=== PATIENT | female | born 1995 | race Caucasian/White ===

== ENCOUNTER 2018-02-24 09:21 | Emergency (ER) | payer OTHER ==
[~2018-02-24] VITALS: Ht 162.6 cm; Wt 90.9 kg
[~2018-02-24 09:21] MED LIST: FISH OIL1000 MG PO; MOTRIN 600600 MG/TAB PO; NATURAL IRON65 MG PO; PRENATAL1 TA7 PO
[2018-02-24 09:25] VITALS: BP 113/66; TEMP 97.8
[2018-02-24 09:47] LABS: BASO # 0.1 (0.0-0.2); BASO % 0.6 % (0.0-2.0); EOS # 0.1 (0.0-0.7); EOS % 1.1 % (0-4.0); GRAN # 7.6 (1.4-6.5); GRAN % 75.4 % (42.2-75.2); HEMATOCRIT 38.7 % (37.0-47.0); HEMOGLOBIN 13.1 g/dl (12.5-16.0); LYMPH # 1.7 (1.2-3.4); LYMPH % 17.1 % (20.0-51.0); MEAN CELL VOLUME 90 fl (80.0-100.0); MEAN CORPUSCULAR HEMOGLOBIN 31 pg (27.0-31.0); MEAN CORPUSCULAR HGB CONC 34 g/dl (33.0-37.0); MEAN PLATELET VOLUME 9.8 fl (7.4-10.4); MONO # 0.5 (0.1-0.6); MONO % 5.4 % (1.7-9.3); PLATELET COUNT 208 K/mm3 (130-400); RED BLOOD COUNT 4.29 M/mm3 (4.10-5.30); REDCELL DISTRIBUTION WIDTH-CV 13.4 % (11.5-14.5)
[2018-02-24 10:04] LABS: ALBUMIN 4.2 gm/dL (3.5-5.0); BILIRUBIN,TOTAL 0.3 mg/dL (0.0-1.0); CALCIUM 9.6 mg/dL (8.4-10.2); CREATININE, serum 0.52 mg/dL (0.52-1.25); POTASSIUM 3.8 mmol/L (3.4-5.0); TOTAL PROTEIN 7.3 gm/dL (6.4-8.2)
[2018-02-24 10:36] LABS: COLLECTION METHOD CLEAN CATCH
[2018-02-24 10:48] LABS: PH 7 (5-8); URINE APPEARANCE Hazy; URINE BACTERIA None Seen /hpf; URINE BILIRUBIN Negative (NEGATIVE); URINE BLOOD Negative (NEGATIVE); URINE COLOR Straw; URINE GLUCOSE Negative (NEGATIVE); URINE KETONE Negative (NEGATIVE); URINE LEUKOCYTE ESTERASE 1+ (NEGATIVE); URINE NITRATE Negative (NEGATIVE); URINE PROTEIN(semi-quant) Negative (NEGATIVE); URINE UROBILINOGEN Negative (NEGATIVE)
[2018-02-24] MEDS ORDERED: CEPHALEXIN500 M1 PO (12:41)
[2018-02-24 13:01] VITALS: PULSE 67
== END 2018-02-24 12:58 | disposition home or self-care (01) ==
LOC: COL.ER 09:21
PROVIDERS: Emergency Medicine
DX: O26.891 Other specified pregnancy related conditions, first trimester (principal); R10.9 Unspecified abdominal pain; Z3A.09 9 weeks gestation of pregnancy

== ENCOUNTER 2018-03-08 13:33 | Emergency (ER) | payer OTHER ==
[~2018-03-08] VITALS: Ht 162.6 cm; Wt 90.9 kg
[~2018-03-08 13:33] MED LIST changes: +CEPHALEXIN500 M1 PO
[2018-03-08 13:42] VITALS: TEMP 98
[2018-03-08 14:04] LABS: COLLECTION METHOD CLEAN CATCH
[2018-03-08 14:19] LABS: MUCOUS Present /lpf; PH 6 (5-8); URINE APPEARANCE Hazy; URINE BACTERIA None Seen /hpf; URINE BILIRUBIN Negative (NEGATIVE); URINE BLOOD 3+ (NEGATIVE); URINE CALCIUM OXALATE CRYSTAL Present /hpf; URINE COLOR Yellow; URINE GLUCOSE Negative (NEGATIVE); URINE KETONE Negative (NEGATIVE); URINE LEUKOCYTE ESTERASE Trace (NEGATIVE); URINE NITRATE Negative (NEGATIVE); URINE PROTEIN(semi-quant) Negative (NEGATIVE); URINE RBC >50 /hpf
[2018-03-08] MEDS ORDERED: CEPHALEXIN500 M1 PO (16:51)
[2018-03-08] MEDS ORDERED: PHENERGAN 25 TA25 MG PO (16:51)
[2018-03-08] MEDS ORDERED: NORCO 325 MG-51 TAB PO (16:51)
[2018-03-08] MEDS ORDERED: FLOMAX 0.40.4 MG/CAP PO (16:51)
[2018-03-08 17:15] VITALS: BP 130/66; PULSE 81
== END 2018-03-08 17:15 | disposition home or self-care (01) ==
LOC: COL.ER 13:33
PROVIDERS: Family Medicine
DX: O99.89 Other specified diseases and conditions complicating pregnancy, childbirth and the puerperium (principal); O99.331 Smoking (tobacco) complicating pregnancy, first trimester; N20.1 Calculus of ureter; N23 Unspecified renal colic; F17.210 Nicotine dependence, cigarettes, uncomplicated; Z3A.08 8 weeks gestation of pregnancy

== ENCOUNTER 2018-03-29 17:35 | Emergency (ER) | payer OTHER ==
[~2018-03-29] VITALS: Ht 162.6 cm; Wt 86.4 kg
[~2018-03-29 17:35] MED LIST changes: +FLOMAX 0.40.4 MG/CAP PO; +NORCO 325 MG-51 TAB PO; +PHENERGAN 25 TA25 MG PO
[2018-03-29 17:43] VITALS: TEMP 98.1
[2018-03-29 19:33] LABS: COLLECTION METHOD CLEAN CATCH
[2018-03-29 19:59] LABS: MUCOUS Present /lpf; PH 6 (5-8); URINE APPEARANCE Cloudy; URINE BACTERIA None Seen /hpf; URINE BILIRUBIN Negative (NEGATIVE); URINE BLOOD Negative (NEGATIVE); URINE COLOR Yellow; URINE GLUCOSE Negative (NEGATIVE); URINE KETONE Trace (NEGATIVE); URINE LEUKOCYTE ESTERASE 2+ (NEGATIVE); URINE NITRATE Negative (NEGATIVE); URINE PROTEIN(semi-quant) Negative (NEGATIVE); URINE UROBILINOGEN Negative (NEGATIVE)
[2018-03-29 20:08] LABS: BASO % 0.3 % (0.0-2.0); EOS # 0.1 (0.0-0.7); EOS % 0.9 % (0-4.0); GRAN # 6.7 (1.4-6.5); GRAN % 68.3 % (42.2-75.2); HEMATOCRIT 38.8 % (37.0-47.0); HEMOGLOBIN 12.9 g/dl (12.5-16.0); LYMPH # 2.4 (1.2-3.4); LYMPH % 24.3 % (20.0-51.0); MEAN CELL VOLUME 91 fl (80.0-100.0); MEAN CORPUSCULAR HEMOGLOBIN 30 pg (27.0-31.0); MEAN CORPUSCULAR HGB CONC 33 g/dl (33.0-37.0); MEAN PLATELET VOLUME 9.7 fl (7.4-10.4); MONO # 0.6 (0.1-0.6); MONO % 5.8 % (1.7-9.3); PLATELET COUNT 217 K/mm3 (130-400); RED BLOOD COUNT 4.27 M/mm3 (4.10-5.30); REDCELL DISTRIBUTION WIDTH-CV 13.6 % (11.5-14.5)
[2018-03-29 20:42] LABS: ALBUMIN 3.9 gm/dL (3.5-5.0); BILIRUBIN,TOTAL 0.3 mg/dL (0.0-1.0); C-REACTIVE PROTEIN 1.5 mg/dL (0.0-0.9); CALCIUM 9.5 mg/dL (8.4-10.2); CREATININE, serum 0.42 mg/dL (0.52-1.25); POTASSIUM 3.9 mmol/L (3.4-5.0); TOTAL PROTEIN 7.4 gm/dL (6.4-8.2)
[2018-03-29] MEDS ORDERED: ZOFRAN ODT4 MG PO (21:01)
[2018-03-29 22:22] VITALS: BP 105/54; PULSE 69
== END 2018-03-29 22:23 | disposition home or self-care (01) ==
LOC: COL.ER 17:35
PROVIDERS: Emergency Medicine; Nurse Practitioner
DX: O21.0 Mild hyperemesis gravidarum (principal); Z3A.12 12 weeks gestation of pregnancy; Z87.891 Personal history of nicotine dependence
CPT/HCPCS: J2550; J7030

== ENCOUNTER 2018-06-15 01:04 | Emergency (ER) | payer OTHER ==
[~2018-06-15] VITALS: Ht 162.6 cm; Wt 87.3 kg
[~2018-06-15 01:04] MED LIST changes: +ZOFRAN ODT4 MG PO
[2018-06-15 01:06] VITALS: TEMP 97.4
[2018-06-15 01:50] LABS: BASO % 0.2 % (0.0-2.0); EOS # 0.1 (0.0-0.7); EOS % 0.4 % (0-4.0); GRAN # 15.8 (1.4-6.5); GRAN % 84.7 % (42.2-75.2); HEMOGLOBIN 11.5 g/dl (12.5-16.0); LYMPH # 1.6 (1.2-3.4); LYMPH % 8.3 % (20.0-51.0); MEAN CELL VOLUME 94 fl (80.0-100.0); MEAN CORPUSCULAR HEMOGLOBIN 31 pg (27.0-31.0); MEAN CORPUSCULAR HGB CONC 33 g/dl (33.0-37.0); MONO # 1.1 (0.1-0.6); MONO % 5.9 % (1.7-9.3); PLATELET COUNT 262 K/mm3 (130-400); RED BLOOD COUNT 3.69 M/mm3 (4.10-5.30)
[2018-06-15 01:56] LABS: HEMATOCRIT 34.8 % (37.0-47.0)
[2018-06-15 01:59] LABS: ALANINE AMINOTRANSFERASE < 6 U/L (9-52); ALBUMIN 3.6 gm/dL (3.5-5.0); ALKALINE PHOSPHATASE 110 U/L (50-136); ANION GAP 10 mmol/L (7-16); AST,SGOT 21 U/L (15-37); BILIRUBIN,TOTAL 0.2 mg/dL (0.0-1.0); BLOOD UREA NITROGEN 11 mg/dL (7-17); CALCIUM 9.2 mg/dL (8.4-10.2); CARBON DIOXIDE 19 mmol/L (22-30); CHLORIDE 108 mmol/L (98-107); CREATININE, serum 0.42 (0.52-1.25); GLUCOSE 103 mg/dL (74-106); POTASSIUM 3.6 mmol/L (3.4-5.0); SODIUM 137 mmol/L (137-145)
[2018-06-15 05:08] LABS: COLLECTION METHOD CLEAN CATCH
[2018-06-15] MEDS ORDERED: REGLAN 10MG10 MG/TAB PO (05:10)
[2018-06-15] MEDS ORDERED: PHENERGAN 25 TA25 MG PO (05:10)
[2018-06-15 05:16] LABS: MUCOUS Present /lpf; PH 5 (5-8); URINE APPEARANCE Hazy; URINE BACTERIA None Seen /hpf; URINE BILIRUBIN Negative (NEGATIVE); URINE BLOOD Negative (NEGATIVE); URINE COLOR Yellow; URINE GLUCOSE Negative (NEGATIVE); URINE KETONE Negative (NEGATIVE); URINE LEUKOCYTE ESTERASE Trace (NEGATIVE); URINE NITRATE Negative (NEGATIVE); URINE PROTEIN(semi-quant) Negative (NEGATIVE); URINE RBC 0-2 /hpf; URINE UROBILINOGEN Negative (NEGATIVE)
[2018-06-15] MEDS ORDERED: MACROBID 1100 MG/CAP PO (05:35)
[2018-06-15 06:00] VITALS: BP 127/71; PULSE 87
== END 2018-06-15 06:00 | disposition home or self-care (01) ==
LOC: COL.ER 01:04
PROVIDERS: Emergency Medicine
DX: R11.10 Vomiting, unspecified (principal); R19.7 Diarrhea, unspecified; F17.210 Nicotine dependence, cigarettes, uncomplicated
CPT/HCPCS: J1200; J2405; J2550; J2765; J7030

== ENCOUNTER 2018-09-17 02:11 | Outpatient (CLI) | payer OTHER ==
[~2018-09-17] VITALS: Ht 162.6 cm; Wt 91.8 kg
[~2018-09-17 02:11] MED LIST changes: +MACROBID 1100 MG/CAP PO; +REGLAN 10MG10 MG/TAB PO
--- NOTE | 2018-09-17 02:15 | NUR ---
Pt arrived on unit via wheelchair escorted by mother and with complaints of contractions starting 09/16/18 in the evening. Pt denies any leaking of fluid, vaginal bleeding and reports normal movement. EFM and toco monitors started. SVE by this RN /. Vital signs WNL. Orders for labor assessment received. Plan of care reviewed with pt and mother at the bedside.
[2018-09-17 02:25] VITALS: BP 119/56; PULSE 76; TEMP 97.6
[2018-09-17] MEDS ORDERED: VITAMINS CHILDR1 CT1 PO (02:36)
[2018-09-17] MEDS ORDERED: NATURAL IRON65 MG (02:36)
--- NOTE | 2018-09-17 03:45 | NUR ---
SVE by this RN with no change . Spoke with Dr. Treviño for an update. Ok for extended labor assessment.
--- NOTE | 2018-09-17 04:45 | NUR ---
SVE by this RN with no change. SVE, ctx pattern and FHR tracing reviewed. Orders for discharge received. Discharge instructions reviewed with pt and mother at the bedside. Both verbalized an understanding, agree with the plan, and state no questions or concerns at this time.
== END 2018-09-17 05:10 | disposition home or self-care (01) ==
LOC: LDRO 02:11
DX: O62.9 Abnormality of forces of labor, unspecified (principal); Z3A.38 38 weeks gestation of pregnancy

== ENCOUNTER 2018-09-18 16:35 | Outpatient (CLI) | payer OTHER ==
[~2018-09-18] VITALS: Ht 162.6 cm; Wt 91.8 kg
[~2018-09-18 16:35] MED LIST changes: +NATURAL IRON65 MG; +VITAMINS CHILDR1 CT1 PO
--- NOTE | 2018-09-18 16:40 | NUR ---
1640- Pt arrives on unit ambulatory for labor check, complaints of UCs every 2-3mins. Denies VB, LOF. +FM. Pt into bathroom, changes into gown, voids. 1647- Pt into bed, EFM and TOCO on and tracing. VSS. Assessment completed. 1700- SVE 1-/-3, head ballotable. Plan of care explained, Pt verbalizes understanding. Call light within reach.
[2018-09-18 16:50] VITALS: BP 117/76; PULSE 103; TEMP 98.1
[2018-09-18 18:00] VITALS: BP 113/59; PULSE 83
--- NOTE | 2018-09-18 18:00 | NUR ---
1800- EFM and TOCO off. Pt up to change into street clothes. 1811- Discharge paperwork given and explained. Pt denies questions. Pt ambulates off unit independently in stable condition.
== END 2018-09-18 18:12 | disposition home or self-care (01) ==
LOC: LDRO 16:35 → LDR 18:04 → LDRO 18:12
DX: O62.9 Abnormality of forces of labor, unspecified (principal); Z3A.38 38 weeks gestation of pregnancy
CPT/HCPCS: OP

== ENCOUNTER 2018-09-24 10:06 | Inpatient (IN) | payer OTHER ==
[2018-09-24] VITALS (28 sets, daily range): BP systolic 103–150; BP diastolic 56–92; PULSE 62–100; TEMP 97.4–98.2
[~2018-09-24] VITALS: Ht 162.6 cm; Wt 90.0 kg
--- NOTE | 2018-09-24 10:10 | NUR ---
PATIENT TO LABOR ROOM 4 COMPLAINING OF CONTRACTIONS. PATIENT DENIES LEAKING OF FLUID. PATIENT STATES DARK RED BLOOD WITH SHE WIPES. PATIENT CHANGED INTO GOWN. PATIENT ON EFM. VITAL SIGNS OBTAINED. PATIENT RESTING IN BED. SVE OBTAINED. ADMIT BY DR SOL.
[2018-09-24 11:00] LABS: BASO % 0.2 % (0.0-2.0); EOS # 0.1 (0.0-0.7); EOS % 0.4 % (0-4.0); GRAN # 10.4 (1.4-6.5); GRAN % 77.8 % (42.2-75.2); HEMOGLOBIN 11.5 g/dl (12.5-16.0); LYMPH % 15.3 % (20.0-51.0); MEAN CELL VOLUME 89 fl (80.0-100.0); MEAN CORPUSCULAR HEMOGLOBIN 30 pg (27.0-31.0); MEAN CORPUSCULAR HGB CONC 33 g/dl (33.0-37.0); MEAN PLATELET VOLUME 10.6 fl (7.4-10.4); MONO # 0.8 (0.1-0.6); MONO % 5.8 % (1.7-9.3); PLATELET COUNT 265 K/mm3 (130-400); REDCELL DISTRIBUTION WIDTH-CV 13.9 % (11.5-14.5)
[2018-09-24 11:02] LABS: HEMATOCRIT 34.8 % (37.0-47.0)
--- NOTE | 2018-09-24 15:52 | NUR ---
BY DR SOL. TO THE CARE OF SHRUTHI FERRIS [facility]ENT[facility] DELIVERED AT 1555. PITOCIN 333MLS/HR. FUNDAL MASSAGE PROVIDED. INTACT PERINEUM. ICE PACK APPLIED. WARM BLANKET PROVIDED RECOVERY STARTED AT 1600.
[2018-09-24] MEDS ORDERED: IBU600 MG PO (22:45)
[2018-09-25] VITALS: BP 111/63; PULSE 78; TEMP 98.1
--- NOTE | 2018-09-25 07:00 | NUR ---
Rests in bed, alert. baby. Denies any needs at this time.
[2018-09-25 08:00] VITALS: BP 118/70; PULSE 70; TEMP 97.8
--- NOTE | 2018-09-25 08:00 | NUR ---
0830 Ibuprofen 600 mg given per request and as ordered.
--- NOTE | 2018-09-25 11:00 | NUR ---
Initial visit; Patient thanked [employer] Medical Assistant for offering congratulations and God's blessings for the virth of her daughter. Faculty I [employer] Call Medical Assistant thanked Mom for choosing [employer].
[2018-09-25 12:00] VITALS: BP 118/66; PULSE 76; TEMP 97.5
[2018-09-25 17:00] VITALS: BP 126/64; PULSE 68; TEMP 97.2
--- NOTE | 2018-09-25 17:00 | NUR ---
Rests in bed, alert. Request tylenol. Tylenol 650 mg given per request and as ordered.
[2018-09-25 19:30] VITALS: BP 114/59; PULSE 77; TEMP 98.9
--- NOTE | 2018-09-25 19:50 | NUR ---
Discharge instructions reviewed with pt. Questions answered. Pt ambulatory off unit with family.
== END 2018-09-25 19:50 | disposition home or self-care (01) | DRG 807 ==
LOC: LDR 10:06 → OB 10:10
PROVIDERS: ADMIT Obstetrics & Gynecology
PROC: 10E0XZZ Delivery of Products of Conception, External Approach (ICD-10-PCS; principal; 2018-09-24)
DX: O99.344 Other mental disorders complicating childbirth (principal); Z37.0 Single live birth; F32.9 Major depressive disorder, single episode, unspecified; O77.0 Labor and delivery complicated by meconium in amniotic fluid; J45.909 Unspecified asthma, uncomplicated; O99.52 Diseases of the respiratory system complicating childbirth; Z3A.39 39 weeks gestation of pregnancy; O69.1XX0 Labor and delivery complicated by cord around neck, with compression, not applicable or unspecified
CPT/HCPCS: J2590; J2791; J2795; J7120